=== PATIENT | male | born 1975 | race Two or more races ===

== ENCOUNTER 2025-01-23 19:52 | Emergency (ER) | payer BC, SELFPAY ==
[2025-01-23 19:53] VITALS: BMI 47.2
[2025-01-23 20:29] VITALS: BP 179/97; PULSE 112; RESP 20; TEMP 36.9; O2SAT 95
--- NOTE | 2025-01-23 20:32 | PD.EDEYE ---
ED Eye Problem RME/HPI General Chief complaint: Eye Problems Stated complaint: L EYE INJURY Time Seen by Provider: 01/23/25 20:26 Arrival date/time: 01/23/25 19:52 50-year-old male reports with complaints of foreign object in left eye. Patient states he is uncertain but believes it may be dirt. He attempted to flush his eye with no success. Patient denies any loss of vision vision changes discharge from eye Limitations: no limitations Related Data Previous Rx's ?Medication ?Instructions ?Recorded aluminum-mag hydroxide-simethicone 5 ml PO QID PRN indigestion #355 mL 11/12/21 400 mg-400 mg-40 mg/5 mL oral susp (Advanced Antacid-Antigas) blood sugar diagnostic (Accu-Chek #100 ea 11/12/21 Luz Plus test strips) blood-glucose meter (Accu-Chek #1 ea 11/12/21 Luz Plus Meter) lancets (Accu-Chek Softclix #200 ea 11/12/21 Lancets) pantoprazole 40 mg tablet,delayed 40 mg PO BID #60 tabs 11/12/21 release sucralfate 100 mg/mL oral 10 ml PO QID #414 mL 11/12/21 suspension clindamycin HCl 300 mg capsule 300 mg PO QID #40 caps 09/12/22 dextran 70-hypromellose (PF) 0.1 1 drp ophthalmic (eye) QID PRN dry 01/23/25 %-0.3 % eye drops in a dropperette eye(s) #32 ea (Artificial Tears (PF)) Allergies Allergy/AdvReac Type Severity Reaction Status Date / Time walnut Allergy Severe Swelling Verified 01/23/25 19:55 of Lip/Tongue/Throat Review of Systems Constitutional Constitutional: Denies chills and Denies fever(s) Eyes Eyes: Denies diplopia, Denies eye discharge, Reports irritation, Reports itchy eyes and Denies eye pain Integumentary/Breasts Skin/Breast: Denies rash and Denies skin pain Allergic/Immunologic Allergic/Immunologic: Reports itchy eyes Past Medical History Past Medical History NEUROLOGIC: Negative Seizures CARDIAC: Positive Hypercholesterolemia and Hypertension; Negative Cardiac Disorders or Congestive Heart Failure RESPIRATORY: Negative Chronic Obstructive Pulmonary Disease (COPD) or Asthma GENITOURINARY: Negative Renal Disease ENDOCRINE: Positive Diabetes Mellitus Type 2; Negative Diabetes Mellitus Type 1 HEMATOLOGIC: Negative Sickle Cell Disease OTHER HISTORY: Positive Blood Transfusions; Negative Blood Transfusion Reaction or Anesthesia Reactions Social History SMOKING STATUS: Never smoker SUBSTANCE USE: does not use ED Exam General Limitations: Present no limitations General appearance: Present alert and in no apparent distress Head Head exam: Present atraumatic Eye Eye exam: Present normal appearance, PERRL, EOMI and other (Copious tearing from the left eye) Neurological Exam Neurological exam: Present alert, oriented X3 and CN II-XII intact Psychiatric Psychiatric exam: Present normal affect and normal mood Skin Skin exam: Present warm, dry, intact and normal color Course Quality Measures none Orders Category Date Time Status ED Eye Irrigation ONCE Care 01/23/25 20:31 Active Cho Lamp to Bedside X1 Care 01/23/25 20:31 Active Fluorescein Sodium [Bio-Chloé] Med 01/23/25 20:31 Discontinued 1 mg LEFT EYE X1 ONE Proparacaine Op Christel 0.5% [Alcaine Op Christel 0.5%] Med 01/23/25 20:31 Discontinued See Dose Instructions LEFT EYE X1 ONE Vital Signs Vital signs: Vital Signs Temperature 98.5 F 01/23/25 20:29 Pulse Rate 112 H 01/23/25 20:29 Respiratory Rate 20 01/23/25 20:29 Blood Pressure 179/97 H 01/23/25 20:29 Pulse Oximetry (%) 95 01/23/25 20:29 Oxygen Delivery Method Room Air 01/23/25 20:29 PROCEDURES: Cho Lamp Exam Left eye: Flourescein uptake:: Yes Cho Lamp Findings: Corneal abrasion Eye Patient data External records reviewed:: None Clinical information provided by:: patient Social determinants that could affect healthcare access:: none Patient has the following chronic illnesses:: NONE How is presenting disease/condition affected by chronic disease/condition?: no chronic disease Evaluation data The following diagnostics were reviewed and interpreted by me:: other (specify) (cho lamp exam) Lab and/or radiology exams considered but not ordered:: none Interpretation Summary: corneal abrasion Medications / Prescriptions Medications or Prescriptions considered but not ordered:: None Medication administrations:: Medication Administration History Discontinued Medications Fluorescein Sodium (Fluorescein Sod 1 Mg Strp) 1 mg LEFT EYE X1 ONE Stop: 01/23/25 20:32 Last Admin: 01/23/25 20:50 Dose: 1 mg Documented By: REGINA Proparacaine HCl (Proparacaine Op Christel 0.5% 15 Ml Btl) 0 drop LEFT EYE X1 ONE Stop: 01/23/25 20:32 Last Admin: 01/23/25 20:50 Dose: 1 drop Documented By: REGINA As above Consultations Consultation(s) initiated? (list below): No Diagnosis Eye Problem Differential Diagnosis: corneal abrasion, conjunctivitis and acute iritis Most likely diagnosis given after review of the tests above:: Corneal abrasion Admission Indicated Admission indicated?: not indicated Admission Request Was there a request for admission?: No Disposition Plan Disposition Plan: Discharge Discharge Attestation Discharge Attestation: The patient and all family members were given an opportunity to ask questions and understood the discharge instructions. Discharge instructions specifically effects, indications for sooner follow up or return to the emergency department, and the expected course of current diagnosis. Patient condition: Stable Discharge Plan Plan Patient Disposition: HOME (Self Care) Prescriptions/Referrals Prescriptions/Med Rec: New Artificial Tears (PF) 0.1-0.3 % dropperette 1 drp ophthalmic (eye) QID PRN (Reason: dry eye(s)) Qty: 32 0RF No Action alum-mag hydroxide-simeth [Advanced Antacid-Antigas] 400-400-40 mg/5 mL suspension 5 ml PO QID PRN (Reason: indigestion) Qty: 355 0RF sucralfate 100 mg/mL suspension 10 ml PO QID Qty: 414 0RF Rx Instructions: swish in mouth and swallow; use after food/drink (DME) blood-glucose meter [Accu-Chek Luz Plus Meter] Misc See Rx Instructions .Route Qty: 1 0RF Rx Instructions: As directed (DME) Accu-Chek Luz Plus test strp Strip See Rx Instructions .Route Qty: 100 0RF Rx Instructions: As directed (DME) lancets [Accu-Chek Softclix Lancets] Misc See Rx Instructions .Route Qty: 200 0RF Rx Instructions: As directed pantoprazole 40 mg tablet,delayed release (DR/EC) 40 mg PO BID Qty: 60 0RF clindamycin HCl 300 mg capsule 300 mg PO QID Qty: 40 0RF Problem List Clinical Impression: Abrasion of cornea, left Patient/Caregiver Discharge Instructions Discharge Activity: activity as tolerated Education Materials: ED Corneal Abrasion Additional Instructions: Take medication as directed during hours you are awake. Wear UV protection when outside during daylight hours you may use normal saline eye rinse solution for comfort do not use the saline directly after applying antibiotic drops as you may wash the antibiotics out weight approximately 20-30 minutes,? follow-up with your PCP in 24 hours Print Language: Vietnamese Stand Alone Forms: Paulina Award Info., Patient Portal Info Letter
[2025-01-23] MEDS: FLUORESCEIN SOD 1 MG STRP LEFT EYE (20:50)
[2025-01-23] MEDS: PROPARACAINE OP SOL 0.5% 15 ML BTL LEFT EYE (20:50)
== END 2025-01-23 21:21 | disposition home or self-care (01) ==
LOC: SERX 21:32
PROVIDERS: Emergency Provider Emergency Medicine
DX: S05.02XA Injury of conjunctiva and corneal abrasion without foreign body, left eye, initial encounter (principal); X58.XXXA Exposure to other specified factors, initial encounter
CPT/HCPCS: 99281